=== PATIENT | male | born 2000 | race Caucasian/White ===

== ENCOUNTER 2018-05-09 20:19 | Emergency (ER) | payer SELFPAY ==
[~2018-05-09] VITALS: Ht 170.2 cm; Wt 85.7 kg
[2018-05-09 20:38] VITALS: Ht 170.2 cm; Wt 85.7 kg
[2018-05-09 23:05] VITALS: BP 154/90
== END 2018-05-09 23:05 | disposition home or self-care (01) ==
LOC: ED 20:19
DX: L25.9 Unspecified contact dermatitis, unspecified cause (principal); N48.89 Other specified disorders of penis